=== PATIENT | male | born 1995 | race Caucasian/White ===

== ENCOUNTER 2023-05-25 22:34 | Emergency (ER) | payer SELFPAY ==
[2023-05-25 22:37] VITALS: BP 139/76; PULSE 72; RESP 16; TEMP 36.6; O2SAT 97; BMI 21.5
--- NOTE | 2023-05-25 23:01 | ED.EYEPROB1 ---
HPI - Eye Problem General Chief complaint: Eye Problems Stated complaint: rust in eyes Time Seen by Provider: 05/25/23 22:48 Source: patient Mode of arrival: walk-in History of Present Illness HPI Narrative: patient working under his car tonight and believes some rust fell into his eyes. Did attempt to rinse his eyes at home but still feels there is something in his eyes. No visual complaint. No other injury or complaint Related Data Allergies Allergy/AdvReac Type Severity Reaction Status Date / Time lansoprazole [From Prevacid] Allergy Severe Verified 05/25/23 22:43 Review of Systems ROS Status of ROS 10 or more systems reviewed and unremarkable except as noted in history and below Exam Constitutional Vital Signs, click to edit/add: Last Vital Signs Temp 97.9 F 05/25/23 22:37 Pulse 72 05/25/23 22:37 Resp 16 05/25/23 22:37 BP 139/76 05/25/23 22:37 Pulse Ox 97 05/25/23 22:37 O2 Del Method Room Air 05/25/23 22:49 Common normals: no apparent distress, average body habitus, oriented x3, no limitations, healthy appearing, alert and well nourished Eye Other: right eye clear on gross inspection with my eyes. Left conjunctiva mildly injected and a small FB appreciated 9 oclock position overlying the iris. Respiratory Common normals: normal respiratory effort, no retractions and no use of accessory muscles GI Common normals: Normal to inspection, nondistended, normoactive bowel sounds present Extremity Common normals: normal to inspection and full ROM Neuro Common normals: oriented x3, CN's II-XII intact bilaterally, moves all extremities and no focal motor deficits Psych Appearance: grossly normal Course Vital Signs Vital signs: Vital Signs Temperature 97.9 F 05/25/23 22:37 Pulse Rate 72 05/25/23 22:37 Respiratory Rate 16 05/25/23 22:37 Blood Pressure 139/76 05/25/23 22:37 Pulse Oximetry 97 05/25/23 22:37 Oxygen Delivery Method Room Air 05/25/23 22:37 Temperature 97.9 F 05/25/23 22:37 Pulse Rate 72 05/25/23 22:37 Respiratory Rate 16 05/25/23 22:37 Blood Pressure 139/76 10/21/23 22:37 Pulse Oximetry 97 05/25/23 22:37 Oxygen Delivery Method Room Air 05/25/23 22:49 MDM - Eye Problem MDM Narrative Medical decision making narrative: presents to the ER after working under his vehicle and rust particles falling into his eye. Slit lamp used to remove multiple FB. Patient discharged home and advised to have his eyes rechecked in the next 1-2 days. Discharged home with a prescription for Tobramycin eye drops Discharge Plan Discharge Chief Complaint: Eye Problems Clinical Impression: Foreign body in eye Patient Disposition: Home, Self-Care Instructions: Eye Foreign Body (ED) Additional Instructions: instill drops inn eyes every 4 hours. have the eyes rechecked in 1-2 days Stand Alone Forms: Portal Instructions Referrals: Physician,Non-Staff, MD [Primary Care Provider] - 1 week Procedures ED Procedure Instructions Procedures Procedures: slit lamp used to examine eyes. One small piece of rust found in the right eye and #5 found in the left. tetracaine used as a local anesthesia able to remove the FB from both eyes using sterile 25 guage needle and Qtip patient tolerated well. no complications
[2023-05-25] MEDS: TETRACAINE HCL 0.5% OP SOL 80 DROP/4 ML BOTTLE OP (23:04)
[2023-05-25] MEDS: FLUORESCEIN SODIUM 1 MG STRIP 2 MG OP (23:05)
--- NOTE | 2023-05-25 23:25 | PC.NURSE ---
4 small pieces of rust removed by DR at bedside with slit lamp. Pt feeling nauseated and becomes pale. Pt placed back in bed, given a soda as requested and will give pt some time in between rust removal. call light in reach.
--- NOTE | 2023-05-26 00:14 | PC.NURSE ---
additional rust removed by DR at bedside. pt tolerates procedure well.
[2023-05-26] MEDS: TOBRAMYCIN 0.3% OP SOL 100 DROP/5 ML BOTTLE OP (00:36)
== END 2023-05-26 00:43 | disposition home or self-care (01) ==
PROVIDERS: Emergency Provider Internal Medicine
DX: T15.92XA Foreign body on external eye, part unspecified, left eye, initial encounter (principal); T15.91XA Foreign body on external eye, part unspecified, right eye, initial encounter
CPT/HCPCS: 65205; 99283